=== PATIENT | female | born 1980 | race Two or more races ===

== ENCOUNTER 2021-09-10 08:59 | Emergency (ER) | payer SELFPAY ==
[~2021-09-10] VITALS: Ht 139.7 cm; Wt 61.9 kg
[2021-09-10] MEDS ORDERED: IBUPROFEN 200 MG TABLET. PO ONE (11:00)
[2021-09-10] MEDS ORDERED: ACETAMINOPHEN 325 MG TABLET. PO ONE (11:00)
--- NOTE | 2021-09-10 12:07 | RAD ---
EXAM: Left breast sonogram. HISTORY: Left breast pain. Recent breast contusion status post blunt trauma. TECHNIQUE: Sonographic imaging of the left breast targeted to the site of reported pain was performed . COMPARISON: None. FINDINGS: There is no suspicious finding within the left breast at the site of reported pain. Specifi garth, no abscess or hematoma is seen. IMPRESSION: 1. No sonographic correlate for reported left breast pain. Continued clinical follow-up of palpable a bnormality is recommended. Repeat imaging can be performed if there is continuing concern or change i n physical exam findings. 2. BI-RADS Category 2: Benign finding(s). Note is made that there is no prior mammogram for this gagan ent at this facility. If a mammogram has not been performed in the past year, the patient is due for bilateral screening mammography based on age and ACR guidelines. Electronically signed by: Seble Dorado MD (09/10/2021 12:05 PM) [id number]
[2021-09-10 13:59] VITALS: BP 135/76
--- NOTE | 2021-09-10 14:31 | PHYS DOC ---
Past Medical History Past Surgical History: , Tubal ligation Smoking Status: Never Smoker Alcohol Use: None General Adult EDM: Chief Complaint: BREAST PROBLEM HPI: HPI: Patient is a 41 year old female presents to the emergency department concerning painful left breast for the past 2 weeks, patient states she ran into a wooden stick at work against her left breast and has had pain ever since. Patient reports she has not taken anything for her pain, reports fevers at home since then, stating her highest fever was 99.0, reports clear discharge expressed from nipple. Denies bruising or swelling. Denies cough or congestion. Denies chest pains, skin lesions or skin rashes. Patient denies other physical complaints or physical concerns. Review of Systems: Review of Systems: 14 body systems of review of systems have been reviewed. See HPI for pertinent positives and negative responses, otherwise all other systems are negative, nonpertinent or noncontributory. Constitutional: Negative except as outlined in HPI above. Skin: Negative except as outlined in HPI above. Eyes: Negative except as outlined in HPI above. HENT: Negative except as outlined in HPI above. Respiratory: Negative except as outlined in HPI above. Cardiovascular: Negative except as outlined in HPI above. GI: Negative except as outlined in HPI above. : Negative except as outlined in HPI above. Musculoskeletal: Negative except as outlined in HPI above. Integument: Negative except as outlined in HPI above. Neurologic: Negative except as outlined in HPI above. Endocrine: Negative except as outlined in HPI above. Lymphatic: Negative except as outlined in HPI above. Psychiatric: Negative except as outlined in HPI above. Heart Score: C/O Chest Pain: No Risk Factors: Risk Factors: DM, Current or recent (<one month) smoker, HTN, HLP, family history of CAD, obesity. Risk Scores: Score 0 - 3: 2.5% MACE over next 6 weeks - Discharge Home Score 4 - 6: 20.3% MACE over next 6 weeks - Admit for Clinical Observation Score 7 - 10: 72.7% MACE over next 6 weeks - Early Invasive Strategies Current Medications: Current Medications Medications (Trade) Dose Ordered Sig/Piper Start Time Stop Time Status Last Admin Dose Admin Acetaminophen (Tylenol) 650 mg 1X ONCE 09/10/21 11:00 09/10/21 11:04 DC 09/10/21 11:25 650 MG Ibuprofen (Motrin) 600 mg 1X ONCE 09/10/21 11:00 09/10/21 11:04 DC 09/10/21 11:25 600 MG Allergies: Allergies: Allergies Coded Allergies Type Severity Reaction Last Updated Verified No Known Drug Allergies 09/10/21 No Physical Exam: PE: Constitutional: Well developed, well nourished, no acute distress, non-toxic appearance. 41-year-old female in no apparent distress. Patient's complaint level of pain exceeds patient's appearance and physical examination. HENT: Normocephalic, atraumatic. Eyes: Conjunctiva normal, no discharge. Neck: Normal range of motion, no stridor. Cardiovascular: No cyanosis appreciated, distal cap refill less than 2 seconds. Lungs & Thorax: Patient is in no respiratory distress, no audible adventitious lung sounds appreciated. 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 Abdomen: Nontender, no abnormalities noted. Skin: Warm, dry, no erythema, no rash. Back: No tenderness, no deformities. Extremities: No tenderness, no cyanosis, no clubbing, ROM intact, no edema. Neurologic: Alert and oriented X 3, normal motor function, normal sensory function, no focal deficits noted. Psychologic: Affect normal, judgement normal, mood normal. Current Patient Data: Labs: Laboratory Tests Test 09/10/21 10:41 POC Urine HCG, Qualitative Hcg negative (Negative) Vital Signs: Vital Signs Date Time Temp Pulse Resp B/P (MAP) Pulse Ox O2 Delivery O2 Flow Rate FiO2 09/10/21 13:59 76 14 135/76 (95) 98 Room Air 09/10/21 10:40 98.7 98.7 EKG: EKG: [] Radiology/Procedures: Radiology/Procedures: PATIENT: LEIGH BROWNCCOUNT: [id number] : 1980 LOCATION: ER AGE: 41 SEX: F EXAM STATUS: REG ER ORD. PHYSICIAN: JOCELIN CARNEY APRN REASON: Painful LT breast, history of recent contusion;400 outside [place] PROCEDURE: BREAST LEFT EXAM: Left breast sonogram. HISTORY: Left breast pain. Recent breast contusion status post blunt trauma. TECHNIQUE: Sonographic imaging of the left breast targeted to the site of reported pain was performed. COMPARISON: None. FINDINGS: There is no suspicious finding within the left breast at the site of reported pain. Specifically, no abscess or hematoma is seen. IMPRESSION: 1. No sonographic correlate for reported left breast pain. Continued clinical follow-up of palpable abnormality is recommended. Repeat imaging can be performed if there is continuing concern or change in physical exam findings. 2. BI-RADS Category 2: Benign finding(s). Note is made that there is no prior mammogram for this patient at this facility. If a mammogram has not been performed in the past year, the patient is due for bilateral screening mammography based on age and ACR guidelines. Electronically signed by: Seble Dorado MD (09/10/2021 12:05 PM) [id number] Course & Med Decision Making: Course & Med Decision Making Pertinent Labs and Imaging studies reviewed. (See chart for details) 41-year-old female, vital signs reviewed, presents emergency department concerning left breast pain after running into a wooden stick at work. Patient's physical examination nonconcerning for breast injury, no lesions or hematomas or masses were appreciated through palpation however patient did complain of 10 out of 10 pain during exam. Will order sonogram study of left breast to rule out infectious hematoma. Will give pain medication. Sonogram nonconcerning as interpreted by house radiologist. Discussed findings with patient, follow-up with primary care, return to ER precautions and concerns, [id number] pain medication use, patient amenable to ED discharge planning. Discussed with the patient all findings and diagnostic testing as well as the need to follow-up with their primary care provider for further evaluation and treatment or return to the ED if any new or worsening symptoms. Strict return precautions were also discussed at length, the patient voiced understanding and agreement with the discharge planning. The patient was nontoxic in appearance, in no apparent distress, and hemodynamically stable at the time of disposition. Dragon Disclaimer: Dragon Disclaimer: This electronic medical record was generated, in whole or in part, using a voice recognition dictation system. Departure Departure Impression: Primary Impression: Breast pain in female Disposition: HOME / SELF CARE / HOMELESS Condition: GOOD Referrals: NO PCP (PCP) Additional Instructions: You were seen today in the emergency department for pain of the left breast after running into a stick at work. A sonogram study did not show any concerni ng signs of injury. I have provided you a list of primary care physicians and area clinics to establish primary care, please choose a primary care provider and establish care soon, you may take [id number] Tylenol and/or Motrin for pain. Return to the emergency department for worsening symptoms or other concerns. Thank you for visiting our Emergency Department. It was a pleasure taking care of you today in the emergency department and we appreciate you trusting us with your care. If any additional problems come up don't hesitate to return to visit us. Please follow up with your primary care provider so they can plan additional care if needed and know about the problem that you had. If symptoms worsen come back to the Emergency Department. Any concerning symptoms that start such as chest pain, shortness of air, weakness or numbness on one side of the body, running high fevers or any other concerning symptoms return to the ER. EMERGENCY DEPARTMENT GENERAL DISCHARGE INSTRUCTIONS Thank you for coming to [facility] Emergency Department (ED) today and trusting us with you care. We trust that you had a positive experience in our Emergency Department. If you wish to speak to the department management, you may call the Director at [phone]. YOUR FOLLOW UP INSTRUCTIONS ARE FOLLOWS: 1. Do you have a private Doctor? If you do not have a private doctor, please ask for a resource list of physicians or clinics that may be able to assist you with follow up care. 2. The Emergency Physicain has interpreted your x-rays. The X-Ray specialist will also review them. If there is a change in the findings, you will be notified in 48 hours when at all possible. 3. A lab test or culture has been done, your results will be reviewed and you will be notified if you need a change in treatment. ADDITIONAL INSTRUCTIONS AND INFORMATION: 1. Your care today has been supervised by a physician who is specially trained in emergency care. Many problems require more than one evaluation for a complete diagnosis and treatment. We recommend that you schedule your follow up appointment as recommended to ensure complete treatment of you illness or injury. If you are unable to obtain follow up care and continue to have a problem, or if your condition worsens, we recommend that you return to the ED. 2. We are not able to safely determine your condition over the phone nor are we able to give sound medical advice over the phone. For these safety reasons, if you call for medical advice we will ask you to come to the ED for further evaluation. 3. If you have any questions regarding these discharge instructions please call the ED at [phone]. SAFETY INFORMATION: In the interest of safety, wellness, and injury prevention; we encourage you to wear your sealbelt, if you smoke; quite smoking, and we encourage family to use a protective helmet for bicycling and other sporting events that present an increased risk for head injury. IF YOUR SYMPTOMS WORSEN OR NEW SYMPTOMS DEVELOP, OR YOU HAVE CONCERNS ABOUT YOUR CONDITION; OR IF YOUR CONDITION WORSENS WHILE YOU ARE WAITING FOR YOUR FOLLOW UP APPOINTMENT; EITHER CONTACT YOUR PRIMARY CARE DOCTOR, THE PHYSICIAN WHOSE NAME AND NUMBER YOU WERE GIVEN, OR RETURN TO THE ED IMMEDIATELY. JOCELIN CARNEY APRN Sep 10, 2021 14:31
== END 2021-09-10 14:35 | disposition home or self-care (01) ==
LOC: ER 08:59
DX: N64.4 Mastodynia (principal)
CPT/HCPCS: 76641; 81025; 99284